=== PATIENT | female | born 1995 | race Two or more races ===

== ENCOUNTER 2020-01-27 22:15 | Emergency (ER) | payer OTHER ==
[~2020-01-27] VITALS: Ht 160 cm; Wt 93.4 kg
[2020-01-27] MEDS ORDERED: PRENATABS RX T1 EACH PO (22:21)
== END 2020-01-28 02:56 ==
LOC: ER 22:15
DX: O20.0 Threatened abortion (principal); Z20.828 Contact with and (suspected) exposure to other viral communicable diseases

== ENCOUNTER 2021-04-14 05:14 | Emergency (ER) | payer OTHER ==
[~2021-04-14] VITALS: Ht 162.6 cm; Wt 100.2 kg
[~2021-04-14 05:14] MED LIST: PRENATABS RX T1 EACH PO
[2021-04-14] MEDS ORDERED: NASAL MIST126 ML (05:28)
[2021-04-14] MEDS ORDERED: ZITHROMAX200 MG (05:28)
[2021-04-14] MEDS ORDERED: KETOROLAC TROMET5 ML (05:28)
[2021-04-14] MEDS ORDERED: ENDOCET 5-3251 EACH (05:28)
[2021-04-14] MEDS ORDERED: MOTRIN IB200 M1 (05:30)
== END 2021-04-14 05:58 | disposition home or self-care (01) ==
LOC: ER 05:14
DX: M94.0 Chondrocostal junction syndrome [Tietze] (principal)

== ENCOUNTER 2025-02-22 16:00 | Emergency (ER) | payer OTHER ==
[~2025-02-22] VITALS: Ht 162.6 cm; Wt 65.8 kg
[~2025-02-22 16:00] MED LIST changes: +ENDOCET 5-3251 EACH; +KETOROLAC TROMET5 ML; +MOTRIN IB200 M1; +NASAL MIST126 ML; +ZITHROMAX200 MG
[2025-02-22] MEDS ORDERED: CEFTRIAXONE SODIUM 1,000 MG VIAL IM STA (18:02)
[2025-02-22] MEDS ORDERED: KETOROLAC TROMETHAMINE 30 MG VIAL IM STA (18:02)
[2025-02-22 20:28] VITALS: BP 142/74; O2SAT 100
== END 2025-02-22 20:30 | disposition home or self-care (01) ==
LOC: ER 16:00
DX: K05.10 Chronic gingivitis, plaque induced (principal); K08.89 Other specified disorders of teeth and supporting structures